=== PATIENT | female | born 1955 ===

== ENCOUNTER 2020-10-08 09:25 | Inpatient (IN) | payer OTHER ==
--- NOTE | 2020-10-08 11:50 | R.PREADM ---
PRE-ADMISSION SCREENING FORM SCREENING DATE AND TIME 10/08/2020 09:33 (FLANGER) ANTICIPATED REHAB ADMISSION DATE 10/10/2020 REFERRING FACILITY [facility] REFERRAL DATE AND TIME 10/08/2020 09:33 (FLANGER) ACUTE ADMIT DATE 10/08/2020 HOSPITALIZED IN LAST 60 DAYS? 09/19/20 Previous Rehabilitation(s): No. 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 Andres Lux M.D. MR# [id number] NAME ELEONORA PEDRO ADDRESS [address] PHONE ( ZIP [phone] DATE OF 1955 AGE 65 SSN# [id number] GENDER female MARITAL STATUS RACE unknown race ADMIT FROM 02 - [facility] PRE-HOSPITAL LIVING SETTING 01 - Home (private home/apt. board/care, assisted living, long-term, transitional living) HOME TYPE AND DETAILS Type of home: single family house # of levels in the residence: 1 # of steps within the residence: 0 # of steps to enter the residence: 0 PRE-HOSPITAL LIVING WITH Alone FAMILY SUPPORT No PRIMARY FAMILY CONTACT NAME BASSEM RUSH PRIMARY FAMILY CONTACT PHONE PRIMARY FAMILY CONTACT RELATIONSHIP Son PHONE PRIMARY FAMILY CONTACT ON ADM.? no IS PRIMARY FAMILY CONTACT AUTH. REP.? no 1ST EMERGENCY CONTACT BASSEM RUSH 1ST CONTACT PHONE 1ST CONTACT RELATIONSHIP Son PHONE 1ST CONTACT ON ADM. no IS 1ST CONTACT AUTH. REP.? no PHONE 2ND CONTACT ON ADM.? no PATIENT EMPLOYMENT STATUS Retired (for age) PATIENT EMPLOYER No Employer PAYOR INFORMATION: 1ST PAYOR NAME MEDICARE 1ST PAYOR PHONE 1ST PAYOR INJURY/ILLNESS DUE TO ACCIDENT? No ANOTHER DEMOCRAT RESPONSIBLE? No PRIMARY REHAB/ACUTE DIAGNOSIS: CHF ONSET DATE 10/04/2020 REHAB IMPAIRMENT CATEGORY (RAO): 14 Cardiac does NOT meet 60% rule PRIMARY DIAGNOSIS-RELATED SURGERIES: CAD STATUS POST CABGX3 09/19/20 SUMMARY OF ACUTE HOSPITALIZATION: Pt. is a 65 yo Right-handed female of unknown race. On 10/04/2020 she was admitted to [facility] with diagnosis CHF. Her impairment category is Cardiac 09 - Cardiac Disorders (). Pre-morbidly, Pt. was independent/mod-I in Communication, Safety Awareness, Transfers Control, Self-C are, and Endurance; and she had good Balance and Social Cognition. Currently, she has deficits of Balance, Social Cognition, Sphincter Control, Communication, and Self- Care. Pt. is now referred to [facility] for acute in-patient rehabilitation in order to maximize patient's functional independence in activities of daily living, strength, ROM, and mobi lity. Patient has realistic goal of being discharged at assistance level 7-[facility] to reside at Home with Pt s elf. PAST MEDICAL HISTORY DIABETES MELLITUS PAST SURGICAL HISTORY: BILATERAL TUBAL LIGATION BYPASS,AORTO CORONARY ALEC 09/19/20 ENDOSCOPIC VEIN HARVEST MEDICATION ALLERGIES: No Known Drug Allergies (NKDA) ENVIRONMENTAL ALLERGIES: - Substance Allergies None Known - Other Allergies None Known CODE STATUS: Full code WEIGHT/HEIGHT/BMI: WEIGHT 140 lbs HEIGHT 5' 9" BMI 20.7 DIET: - Diet Type Regular - Diet - Solid Texture Regular - Diet - Liquid Texture Regular - Tube Feed N/A REVIEW OF SYSTEMS: - Gen Alert and awake Lying in bed No apparent distress Oriented to: person, time, and place - Vital Signs Temperature: 96.4 F SBP/DBP: 124/64 Pulse: 78 Resp: 17 Vital signs stable, afebrile - CVS RRR VITAL SIGNS Temperature: 96.4 124/65 Pulse: 78 Resp: 17 Vital signs stable, afebrile MEDICATIONS/TREATMENT: Other- See attached MAR (Medication Administration Record). CURRENT SPHINCTER CONTROL: Pre-hospital bladder status: unspecified # of bladder accidents in the last 7 days prior to screenin Pre-hospital bowel status: unspecified # of bowel accidents in the last 7 days prior to screenin Last Bowel Movement Date: 10/08/2020 CURRENT LOCOMOTION STATUS: distance walked 200 feet with rolling walker DETAILED CURRENT FUNCTIONAL STATUS: - Bladder accident frequency: Ind - No accidents in the past 7 days - Bowel accident frequency: Ind - No accidents in the past 7 days - Walking score based on distance walked: 0(N/A) score based on distance walked: 3(>=150ft) - Wheelchair score based on distance traveled: 0(N/A) QI SCORES: - Self-Care A. Eating 04-Supervision or touching assistance B. Oral hygiene 03-Partial/moderate assistance C. Toileting hygiene E. Shower/bathe self 02-Substantial/maximal assistance F. Upper body dressing 03-Partial/moderate assistance G. Lower body dressing 02-Substantial/maximal assistance H. Putting on/taking off footwear 88-Not attempted due to medical condition or safety concerns - Mobility A. Roll left and right 03-Partial/moderate assistance B. Sit to lying 03-Partial/moderate assistance C. Lying to sitting on side of bed 03-Partial/moderate assistance D. Sit to stand 03-Partial/moderate assistance E. Chair/gtu-ls-wldwq transfer 03-Partial/moderate assistance F. Toilet transfer G. Car transfer 88-Not attempted due to medical condition or safety concerns I. Walk 10 feet 03-Partial/moderate assistance J. Walk 50 feet with two turns 03-Partial/moderate assistance K. Walk 150 feet 03-Partial/moderate assistance L. Walking 10 feet on uneven surfaces 88-Not attempted due to medical condition or safety concerns M. 1 step (curb) 88-Not attempted due to medical condition or safety concerns N. 4 steps 88-Not attempted due to medical condition or safety concerns O. 12 steps 88-Not attempted due to medical condition or safety concerns P. Picking up object 88-Not attempted due to medical condition or safety concerns R. Wheel 50 feet with two turns 88-Not attempted due to medical condition or safety concerns S. Wheel 150 feet 88-Not attempted due to medical condition or safety concerns - Bladder and Bowel Bladder continence Bowel continence - Endurance Fair - Balance Fair - Safety Awareness Fair CURRENT FUNC. DEFICITS: Self-Care, Mobility, Endurance, Balance, and Safety Awareness HISTORY OF FALLS. HAS THE PATIENT HAD TWO OR MORE FALLS IN THE PAST YEAR OR ANY FALL WITH INJURY IN T HE PAST YEAR?: No PRIOR SURGERY. DID THE PATIENT HAVE MAJOR SURGERY DURING THE 100 DAYS PRIOR TO ADMISSION?: Yes THERAPY NOTES FROM ACUTE CARE: Attached. SPECIAL NEEDS: - Safety Concerns Skin breakdown precautions needed due to skin breakdown risk PATIENT NEEDS ACTIVE AND ONGOING THERAPEUTIC INTERVENTION OF MULTIPLE THERAPY DISCIPLINES, INCLUDING: - Dietary and Nutrition Adequate Nutrition. Nutritional Education. Nutritional Supplements. PATIENT NEEDS CLOSE MEDICAL SUPERVISION BY A REHABILITATION PHYSICIAN FOR: Coordination of Treatment Team PATIENT REQUIRES 24X7 REHAB NURSING FOR MEDICAL AND FUNCTIONAL MGT. OF THE FOLLOWING DEFICITS: Disease Management Medication Management Patient/Family Education Providing Safe Environment PATIENT REQUIRES INTENSIVE, COORDINATED INTERDISCIPLINARY APPROACH TO REHAB: Arranging Home Equipment/Services Discharge Planning Family Intervention/Training Board Certified Behavioral Analyst/Case Management PATIENT REHAB POTENTIAL: Bharti PEDRO is able and expected to receive 3 hours of individualized therapy daily on at least 5 of ev marge 7 days Bharti Wallace prognosis for significant practical improvement within a reasonable period of time appear s Good Expected level of measurable improvement will be of a practical value to Bharti PEDRO's functional capac ity or adaptations to impairments Has a viable Discharge Plan Medically appropriate; condition is sufficiently stable to participate in intensive rehab program DISCHARGE PLAN: - Estimated Length of Stay (days) 10. - Consensus on plan Discharge plan has been discussed with primary caregiver. Patient/Family is in agreement with the janice n. Primary caregiver is in agreement with the plan. - Patient/Family Goals Return home independently. - Planned Living Setting Upon Discharge Home, to live alone. Transitional Living. Primary caregiver: Pt self. RECOMMENDED CARE LEVEL: IRF RECOMMENDATION DETAILS: Recommended Admission to Comprehensive Rehabilitation Program to Increase Functional Anchor SCREENER'S COMPLETENESS CONFIRMATION: - Screening Confirmation The patient data collection on this preadmission screening form is finished PHYSICIANS REVIEW AND ADMISSION DETERMINATION Admit - Based on my review of the Pre-Admission Screening results, in my medical judgment and experie nce, I concur with the findings and recommend admission to [facility], as this patient requires an IRF level of care. SIGNATURE PANEL: Garment Tag Stringer - [electronically] signed by Humberto Quesada on 10/08/2020 at 10:05 (FLANGER) Garment Tag Stringer - [electronically] signed by Simnoe Webb PT on 10/08/2020 at 11:06 (FLANGER) Physician Reviewer - [electronically] signed by Dr. Andres Lux M.D. on 10/08/2020 at 11:44 (FLANGER )
[2020-10-08] MEDS ORDERED: D50W 25 GM/50 ML SYRINGE IV PRN (18:15)
[2020-10-08] MEDS ORDERED: GLUCAGON 1 MG/VIAL IM PRN (18:15)
[2020-10-08] MEDS ORDERED: MELATONIN 3 MG TABLET PO PRN (18:17)
[2020-10-08] MEDS ORDERED: BISACODYL E.C. 5 MG TAB PO PRN (18:26)
[2020-10-08] MEDS ORDERED: MELATONIN 5 MG TABLET PO PRN (18:29)
[2020-10-08] MEDS: TORSEMIDE 20 MG TAB PO SCH (20:00)
[2020-10-08] MEDS: SACUBITRIL/VALSARTAN 24/26 MG TAB PO SCH (20:48)
[2020-10-08] MEDS: ATORVASTATIN 40 MG TAB PO SCH (20:50)
[2020-10-08] MEDS: FAMOTIDINE 20 MG TAB PO SCH (20:50)
[2020-10-08] MEDS: METOPROLOL XL 25 MG TAB PO SCH (20:51)
[2020-10-08] MEDS: TRAMADOL HCL 50 MG TAB PO PRN (20:57)
[2020-10-08] MEDS: INSULIN -REGULAR HUMAN 50 UNIT/0.5 ML ML SQ SCH (21:00)
[2020-10-08] MEDS: ENOXAPARIN 40 MG/0.4 ML SQ SCH (21:01)
[2020-10-09 06:18] LABS: Urine Appearance CLEAR; Urine Bilirubin NEGATIVE (NEG); Urine Blood NEGATIVE (NEG); Urine Color YELLOW; Urine Glucose NEGATIVE (NEG); Urine Protein 1+ (NEG); Urine Specific Gravity 1.015 (1.005-1.030)
[2020-10-09 06:23] LABS: Absolute Lymphocytes (CBC) 1.7 K/uL (0.7-4.9); Basophils % 0.2 % (0-1.3); Hematocrit 33.3 % (36.0-45.0); Lymphocytes % 31.7 % (15.3-44.8); MPV 7.7 fL (7.6-11.3); RBC Red Blood Cell Count 4.04 M/uL (3.86-4.86)
[2020-10-09 06:24] LABS: Urine Bacteria >50 /HPF (<20); Urine RBC <5 /HPF (NONE SEEN); Urine Urothelial Cells <5 /HPF (NONE SEEN)
[2020-10-09 06:44] LABS: Albumin 2.7 g/dL (3.4-5.0); Potassium 4.6 mmol/L (3.5-5.1); Prealbumin 17.5 mg/dL (20-40)
[2020-10-09] MEDS: INSULIN -REGULAR HUMAN 50 UNIT/0.5 ML ML SQ SCH ×4 (07:30→20:04)
[2020-10-09] MEDS: ENOXAPARIN 40 MG/0.4 ML SQ SCH ×2 (08:00→20:04)
[2020-10-09] MEDS: METOPROLOL XL 25 MG TAB PO SCH ×2 (08:00→16:52)
[2020-10-09] MEDS: ASPIRIN EC 81 MG TAB PO SCH (08:58)
[2020-10-09] MEDS: FAMOTIDINE 20 MG TAB PO SCH ×2 (08:58→19:57)
[2020-10-09] MEDS: POTASSIUM CL SA 10 MEQ TAB PO SCH (08:58)
[2020-10-09] MEDS: TRAMADOL HCL 50 MG TAB PO PRN ×2 (08:59→20:10)
[2020-10-09] MEDS: TORSEMIDE 20 MG TAB PO SCH ×2 (10:23→19:58)
[2020-10-09] MEDS: SACUBITRIL/VALSARTAN 24/26 MG TAB PO SCH ×2 (12:11→20:02)
--- NOTE | 2020-10-09 16:27 | FAST ---
QUALITY INDICATORS FORM SHIFT START DATE/TIME: 10/09/2020 07:00 (NAVY MATERIAL INSPECTOR) SHIFT END DATE/TIME: 10/09/2020 19:00 (NAVY MATERIAL INSPECTOR) NAME ELEONORA PEDRO DATE OF : 1955 DATE OF ADMISSION: 10/08/2020 16:36 (NAVY MATERIAL INSPECTOR) PHONE: ( AGE: 65 SSN# [id number] GENDER: Female ENCOUNTER PHYSICIAN: Dr. Andres Lux M.D. ADMISSION DIAGNOSIS: - Cardiac 09 - Cardiac Disorders () CHF. EATING: EATING - STEP 1: Does the patient complete the activity by him/herself with no assistance (physical, verbal/nonverbal cueing, setup/clean-up)? No. EATING - STEP 2: Does the patient need only setup/clean-up assistance from one helper? Yes. 1. [id number] ADMISSION PERFORMANCE: Setup or clean-up assistance CODE: 05 ORAL HYGIENE: ORAL HYGIENE - STEP 1: Does the patient complete the activity by him/herself with no assistance (physical, verbal/nonverbal cueing, setup/clean-up)? No. ORAL HYGIENE - STEP 2: Does the patient need only setup/clean-up assistance from one helper? Yes. 1. [id number] ADMISSION PERFORMANCE: Setup or clean-up assistance CODE: 05 TOILETING HYGIENE: TOILETING HYGIENE - STEP 1: Does the patient complete the activity by him/herself with no assistance (physical, verbal/nonverbal cueing, setup/clean-up)? No. TOILETING HYGIENE - STEP 2: Does the patient need only setup/clean-up assistance from one helper? Yes. 1. [id number] ADMISSION PERFORMANCE: Setup or clean-up assistance CODE: 05 BATHING: Not assessed/no information CODE: - DRESSING - UPPER BODY: Not assessed/no information CODE: - [id number] - COMMENTS: Pt wears hospital gowns only DRESSING - LOWER BODY: Not assessed/no information CODE: - [id number] - COMMENTS: Pt wears only hospital gowns PUTTING ON/TAKING OFF FOOTWEAR: FOOTWEAR - STEP 1: Does the patient complete the activity by him/herself with no assistance (physical, verbal/nonverbal cueing, setup/clean-up)? No. FOOTWEAR - STEP 2: Does the patient need only setup/clean-up assistance from one helper? No. FOOTWEAR - STEP 3: Does the patient need only verbal/nonverbal cueing or touching/steadying/contact guard assistance fro m one helper? No. FOOTWEAR - STEP 4: Does the patient need physical assistance - for example lifting or trunk support from one helper - wi th the helper providing less than half of the effort? No. FOOTWEAR - STEP 5: Does the patient need physical assistance - for example lifting or trunk support from one helper - wi th the helper providing more than half of the effort? No. FOOTWEAR - STEP 6: Does the helper provide all of the effort? OR Is the assistance of two or more helpers required to co mplete the activity? Yes. 1. [id number] ADMISSION PERFORMANCE: Dependent CODE: 01 ROLL LEFT AND RIGHT: Not assessed/no information CODE: - SIT TO LYING: SIT TO LYING - STEP 1: Does the patient complete the activity by him/herself with no assistance (physical, verbal/nonverbal cueing, setup/clean-up)? No. SIT TO LYING - STEP 2: Does the patient need only setup/clean-up assistance from one helper? Yes. 1. [id number] ADMISSION PERFORMANCE: Setup or clean-up assistance CODE: 05 LYING TO SITTING: LYING TO SITTING ON SIDE OF BED - STEP 1: Does the patient complete the activity by him/herself with no assistance (physical, verbal/nonverbal cueing, setup/clean-up)? No. LYING TO SITTING ON SIDE OF BED - STEP 2: Does the patient need only setup/clean-up assistance from one helper? Yes. 1. [id number] ADMISSION PERFORMANCE: Setup or clean-up assistance CODE: 05 SIT TO STAND: SIT TO STAND - STEP 1: Does the patient complete the activity by him/herself with no assistance (physical, verbal/nonverbal cueing, setup/clean-up)? No. SIT TO STAND - STEP 2: Does the patient need only setup/clean-up assistance from one helper? Yes. 1. [id number] ADMISSION PERFORMANCE: Setup or clean-up assistance CODE: 05 TRANSFERS: BED, CHAIR: CHAIR/[id number] TRANSFER - STEP 1: Does the patient complete the activity by him/herself with no assistance (physical, verbal/nonverbal cueing, setup/clean-up)? No. CHAIR/[id number] TRANSFER - STEP 2: Does the patient need only setup/clean-up assistance from one helper? Yes. 1. [id number] ADMISSION PERFORMANCE: Setup or clean-up assistance CODE: 05 TRANSFER TOILET: TOILET TRANSFER - STEP 1: Does the patient complete the activity by him/herself with no assistance (physical, verbal/nonverbal cueing, setup/clean-up)? No. TOILET TRANSFER - STEP 2: Does the patient need only setup/clean-up assistance from one helper? Yes. 1. [id number] ADMISSION PERFORMANCE: Setup or clean-up assistance CODE: 05 TRANSFERS: CAR: Not assessed/no information CODE: - WALK 10 FEET: Not assessed/no information CODE: - 1 STEP (CURB): Not assessed/no information CODE: - PICKING UP OBJECT: Not assessed/no information CODE: - DOES THE PATIENT USE A WHEELCHAIR/SCOOTER? Q1. DOES THE PATIENT USE A WHEELCHAIR/SCOOTER?: Yes CODE: 1 WHEEL 50 FEET WITH TWO TURNS: Not assessed/no information CODE: - INDICATE THE TYPE OF WHEELCHAIR/SCOOTER USED: RR1. INDICATE THE TYPE OF WHEELCHAIR/SCOOTER USED.: Manual CODE: 1 WHEEL 150 FEET: Not assessed/no information CODE: - INDICATE THE TYPE OF WHEELCHAIR/SCOOTER USED: CODE: EXPR BLADDER AND BOWEL: H350. BLADDER CONTINENCE (3-DAY ASSESSMENT PERIOD): Always continent (no documented incontinence) CODE: 0 H400. BOWEL CONTINENCE (3-DAY ASSESSMENT PERIOD): Always continent CODE: 0 SIGNATURE PANEL: The following modified sections: 1. [id number] Admission Performance, 1. [id number] Admission Performance, 1. [id number] Admission Performance, [id number] - Comments:, [id number] - Comments:, 1. [id number] Admission Perf ormance, 1. [id number] Admission Performance, 1. [id number] Admission Performance, 1. [id number] Admission Per formance, 1. [id number] Admission Performance, 1. [id number] Admission Performance, 1. [id number] Admission Pe rformance, Q1. Does the patient use a wheelchair/scooter?, RR1. Indicate the type of wheelchair/scoot er used., Code, H350. Bladder Continence (3-day assessment period), H400. Bowel Continence (3-day ass essment period) were [electronically] signed by Zuleika JacquesNStu on TueOct 09 2020 16:26:33 GMT- 0600 (Central Standard Time)
--- NOTE | 2020-10-09 17:27 | R.HP ---
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 board/care, assisted living, skilled nursing, transitional living) PRE-HOSPITAL LIVING WITH Alone ENCOUNTER PHYSICIAN: Dr. Andres Lux M.D. 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 is a 65 yo Right-handed female of unknown race. On 10/04/2020 she was admitted to [facility] with diagnosis CHF. Her impairment category is Cardiac 09 - Cardiac Disorders (09). Pre-morbidly, Pt. was independent/mod-I in Communication, Safety Awareness, Transfers Control, Self-C are, and Endurance; and she had good Balance and Social Cognition. Currently, she has deficits of Balance, Social Cognition, Sphincter Control, Communication, and Self- Care. Pt. is now referred to [facility] for acute in-patient rehabilitation in order to maximize patient's functional independence in activities of daily living, strength, ROM, and mobi lity. Patient has realistic goal of being discharged at assistance level 7-Ind to reside at Home with Pt s elf. 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 SOCIAL HISTORY: - Home Living Alone REVIEW OF SYSTEMS: - Gen No Chills Fatigue No Fever - Eyes No Double Vision No itchiness - ENMT No Difficulty Swallowing - CVS No Chest Discomfort No Chest Pain No Fatigue No Weight Gain - Resp No Cough No Shortness of Breath - GI Continent No Abdominal Pain Constipation No Diarrhea - Continent No Kidney Pain No Painful Urination No Urinary Urgency - MSK No Joint Pain Muscle Cramps Stiffness - Skin No Itching No Rash No Suspicious Lesions - Neuro No Coordination Difficulty No Difficulty with Concentration No Memory Loss No Seizures Weakness - Psych No Anxiety No Depression No HIV Exposure No Persistent Infections No Seasonal Allergies - Endo No Cold/Heat Intolerance No Excessive Hunger No Excessive Thirst No Excessive Urination PHYSICAL EXAM - Gen Alert and awake Lying in bed No apparent distress Oriented to: person, time, and place - Skin No breakdown Normacephalic - Eyes No abnormalities - ENMT No abnormalities - Neck No abnormalities - CVS RRR - Chest Mildly decreased breath sounds bilaterally. - Resp No wheezing - Abd Soft - GI Soft Deferred - No abnormalities - Ext Mild bilateral lower extremity edema. - MSK 4/5 weakness in both lower extremities. - Neuro No focal deficits - Psych No abnormalities VITAL SIGNS Temperature: 97.8 SBP/DBP: 126/64 Pulse: 74 Resp: 16 NURSING: - Shower allowing shower ACTIVITIES OOB only with supervision QI SCORES: - Self-Care A. Eating 04-Supervision or touching assistance B. Oral hygiene 03-Partial/moderate assistance C. Toileting hygiene E. Shower/bathe self 02-Substantial/maximal assistance F. Upper body dressing 03-Partial/moderate assistance G. Lower body dressing 02-Substantial/maximal assistance H. Putting on/taking off footwear 88-Not attempted due to medical condition or safety concerns - Mobility A. Roll left and right 03-Partial/moderate assistance B. Sit to lying 03-Partial/moderate assistance C. Lying to sitting on side of bed 03-Partial/moderate assistance D. Sit to stand 03-Partial/moderate assistance E. Chair/saa-oa-sbauy transfer 03-Partial/moderate assistance F. Toilet transfer G. Car transfer 88-Not attempted due to medical condition or safety concerns I. Walk 10 feet 03-Partial/moderate assistance J. Walk 50 feet with two turns 03-Partial/moderate assistance K. Walk 150 feet 03-Partial/moderate assistance L. Walking 10 feet on uneven surfaces 88-Not attempted due to medical condition or safety concerns M. 1 step (curb) 88-Not attempted due to medical condition or safety concerns N. 4 steps 88-Not attempted due to medical condition or safety concerns O. 12 steps 88-Not attempted due to medical condition or safety concerns P. Picking up object 88-Not attempted due to medical condition or safety concerns R. Wheel 50 feet with two turns 88-Not attempted due to medical condition or safety concerns S. Wheel 150 feet 88-Not attempted due to medical condition or safety concerns - Bladder and Bowel Bladder continence Bowel continence - Endurance Fair - Balance Fair - Safety Awareness Fair CURRENT FUNC. DEFICITS: Self-Care, Mobility, Endurance, Balance, and Safety Awareness MEDICATIONS: - Other See attached MAR (Medication Administration Record) ASSESSMENT: Pt. is a 65 yo Right-handed female of unknown race.On 10/04/2020 she was admitted to [facility] with diagnosis CHF.Her impairment category is Cardiac 09 - Cardiac Disorders (09).Pre-morbidly, Pt. was independent/mod-I in Communication, Safety Awareness, Transfers Control, Self-Care, and Enduranc e; and she had good Balance and Social Cognition.Currently, she has deficits of Balance, Social Cogni tion, Sphincter Control, Communication, and Self-Care.Pt. is now referred to [facility] for acute in-patient rehabilitation in order to maximize patient's functional independence in activities of daily living, strength, ROM, and mobility.- Rehab Goal Patient has realistic goal of being discharged at assistance level 7-Ind to reside at Home with Pt s elf. - Physical Therapy Gait dysfunction - to improve, our physical therapists will perform initial evaluation of pt's status upon admission and devise an individualized program for Gait Training, and Wheel Chair mobility Need for home safety evaluation - to improve, our physical therapists will perform initial evaluation of pt's status upon admission and devise an individualized program for Home Evaluation Need in caregiver upon discharge - to improve, our physical therapists will perform initial evaluatio n of pt's status upon admission and devise an individualized program for Caregiver Training New precaution - to improve, our physical therapists will perform initial evaluation of pt's status u anthony admission and devise an individualized program for Patient precaution education Edema - to improve, our physical therapists will perform initial evaluation of pt's status upon admi ssion and devise an individualized program for Elevation Training, and Lymphedema Therapy Poor balance - to improve, our physical therapists will perform initial evaluation of pt's status upo n admission and devise an individualized program for Balance Training Weakness - to improve, our physical therapists will perform initial evaluation of pt's status upon ad mission and devise an individualized program for Aquatic Therapy, Neuromuscular Reeducation, and Stre ngthening Achieving independence - to improve, our physical therapists will perform initial evaluation of pt's status upon admission and devise an individualized program for Community Reintegration Activities - Occupational Therapy ADL deficits - to improve, our occupation therapists will perform initial evaluation of pt's status u anthony admission and devise an individualized program for Bathing, Bed mobility, Community Reintegration , Cooking, Dressing, Eating, Fine Motor Skills, Grooming, Homemaking, Kitchen Mobility, Laundry, Renetta ent Education, Safety Awareness, Splinting - Positioning, Transfers(Toilet, Tub, Shower), and Wheel C hair Management Cognitive deficits - to improve, our occupation therapists will perform initial evaluation of pt's st atus upon admission and devise an individualized program for Cognition - orientation Need for occasional caregiver - to improve, our occupation therapists will perform initial evaluation of pt's s tatus upon admission and devise an individualized program for Caregiver Training Weakness - to improve, our occupation therapists will perform initial evaluation of pt's status upon admission and devise an individualized program for Aquatic Therapy, Balance, Endurance, UE ROM, and U E strengthening MEDICAL PLAN: - Diet Type Start Regular - Diet - Liquid Texture Start Regular - Tube Feed Start N/A - Other See attached MAR (Medication Administration Record) - Diet - Solid Texture Regular - Shower shower DISCHARGE PLAN: - Estimated Length of Stay (days) 10. - Consensus on plan Discharge plan has been discussed with primary caregiver. Patient/Family is in agreement with the janice n. Primary caregiver is in agreement with the plan. - Patient/Family Goals Return home independently. - Planned Living Setting Upon Discharge Home, to live alone. Transitional Living. Primary caregiver: Pt self. 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
--- NOTE | 2020-10-09 17:28 | PAPE ---
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 Andres Lux M.D. ADMISSION DIAGNOSIS: CHF ONSET DATE 10/04/2020 POST-ADMISSION FUNCTIONAL/MEDICAL STATUS: - Bladder Same accident frequency: Ind - No accidents in the past 7 days - Bowel Same accident frequency: Ind - No accidents in the past 7 days - Walking Same score based on distance walked: 0(N/A) Same score based on distance walked: 3(>=150ft) - Wheelchair Same score based on distance traveled: 0(N/A) STATUS CHANGE EVALUATION: No change in Functional or Medical Status is identified compared with Pre-Admission screening. PATIENT NEEDS CLOSE MEDICAL SUPERVISION BY A REHABILITATION PHYSICIAN FOR: Coordination of Treatment Team PATIENT REQUIRES 24X7 REHAB NURSING FOR MEDICAL AND FUNCTIONAL MGT. OF THE FOLLOWING DEFICITS: Disease Management Medication Management Patient/Family Education Providing Safe Environment PATIENT REQUIRES INTENSIVE, COORDINATED INTERDISCIPLINARY APPROACH TO REHAB: Arranging Home Equipment/Services Discharge Planning Family Intervention/Training Psychology Fellow/Case Management LIST OF IDENTIFIED AND POTENTIAL PROBLEMS: Alteration in leisure activities Bladder, Incontinence Bowel, Incontinence Infection, Actual or Potential Mobility Impaired Pain, Alteration in Comfort Self Care Deficit Skin Integrity, Actual or Potential Urinary Tract Infection (UTI), Actual or Potential PATIENT COULD BE AT RISK FOR COMPLICATIONS FROM ADVERSE MEDICAL CONDITIONS DUE TO HIS/HER COMORBIDITI ES AND THE RIGORS OF THE INTENSIVE REHABILLITATION PROGRAM. METHODS OR INTERVENTIONS TO AVOID COMPLIC ATIONS INCLUDE: - Infection Clinical staff to assess and manage the signs and symptoms of infection including fever, redness, war mth, etc. - Urinary Tract Infection - Falls Patient will be evaluated for Fall Precautions and will be placed on Fall Precautions as indicated pe r protocol. - Skin Breakdown Nursing will assess skin daily using assessment tool and will place on Skin Breakdown Precautions as indicated per protocol. - Pain Clinical staff may employ non-medication methods such as massage, distraction, decrease stimulus, etc . as needed. Clinical staff will assess patient's pain level every shift per protocol to assess and e nsure pain management effectiveness. Medications will be given and the pain level re-assessed. PRELIMINARY PLAN OF CARE: - Physical Therapy Patient needs Physical Therapy for a daily minimum of 1.5 hours at least 5 out of 7 days, to improve: Mobility, Strengthening, Transfers, Stretching, ROM, Endurance, Ability to manage stairs, Gait, and Balance. - Speech Therapy Patient needs Speech Therapy for a daily minimum of 0.5 hours at least 5 out of 7 days, to improve: S wallowing, Cognition, Language Skills, and Compensatory Strategies. - Rehabilitation Nursing Patient requires 24x7 Rehabilitation Nursing for: Pain Issues, Identifying and preventing risk factor s, Monitoring and reporting current medical conditions, Assisting with ambulation and transfer, Shilpa ting with all ADL-s, Teaching patients about disease process and medications, Family teaching, Provid ing safe environment, Bowel and Bladder Issues, Skin Integrity, and Medication Management. Patient needs Psychology Fellow and/or Case Management for: Discharge Planning, Arranging Home Equipmen t or Services, and Family Interventions. - Dietary and Nutrition Services Patient needs Dietary and Nutrition Services for: Adequate Nutrition, Nutritional Supplements, and Nu tritional Education. - Occupational Therapy Patient needs Occupational Therapy for a daily minimum of 1.5 hours at least 5 out of 7 days, to impr ove Activities of Daily Living, including: Eating, Grooming, Bathing, Dressing, Toileting, Toilet Tra nsfers, Community Reintegration, Higher functional activities, Adaptive Equipment, Splinting, Househo ld Tasks, and Other activities as determined. QI SCORES: - Self-Care A. Eating 04-Supervision or touching assistance B. Oral hygiene 03-Partial/moderate assistance C. Toileting hygiene E. Shower/bathe self 02-Substantial/maximal assistance F. Upper body dressing 03-Partial/moderate assistance G. Lower body dressing 02-Substantial/maximal assistance H. Putting on/taking off footwear 88-Not attempted due to medical condition or safety concerns - Mobility A. Roll left and right 03-Partial/moderate assistance B. Sit to lying 03-Partial/moderate assistance C. Lying to sitting on side of bed 03-Partial/moderate assistance D. Sit to stand 03-Partial/moderate assistance E. Chair/xen-hd-poudm transfer 03-Partial/moderate assistance F. Toilet transfer G. Car transfer 88-Not attempted due to medical condition or safety concerns I. Walk 10 feet 03-Partial/moderate assistance J. Walk 50 feet with two turns 03-Partial/moderate assistance K. Walk 150 feet 03-Partial/moderate assistance L. Walking 10 feet on uneven surfaces 88-Not attempted due to medical condition or safety concerns M. 1 step (curb) 88-Not attempted due to medical condition or safety concerns N. 4 steps 88-Not attempted due to medical condition or safety concerns O. 12 steps 88-Not attempted due to medical condition or safety concerns P. Picking up object 88-Not attempted due to medical condition or safety concerns R. Wheel 50 feet with two turns 88-Not attempted due to medical condition or safety concerns S. Wheel 150 feet 88-Not attempted due to medical condition or safety concerns - Bladder and Bowel Bladder continence Bowel continence - Endurance Fair - Balance Fair - Safety Awareness Fair POTENTIAL FUNCTIONAL GOALS FOR PATIENT TO ACHIEVE BY DISCHARGE: - Safety Precaution Patient will remain free from falls or injury at time of discharge. - Bed Mobility Patient will perform bed mobility at 4-Keyanna level of assistance. - Transfers Patient will complete transfers from bed to chair at 4-Keyanna level of assistance. - Mobility Patient will ambulate 150 ft with 4-Keyanna level of assistance with RW. PATIENT REHAB POTENTIAL Bharti PEDRO is able and expected to receive 3 hours of individualized therapy daily on at least 5 of ev marge 7 days Bharti PEDRO's prognosis for significant practical improvement within a reasonable period of time appear s Good Expected level of measurable improvement will be of a practical value to Bharti PEDRO's functional capac ity or adaptations to impairments Has a viable Discharge Plan Medically appropriate; condition is sufficiently stable to participate in intensive rehab program DISCHARGE PLAN: - Estimated Length of Stay (days) 10. - Consensus on plan Discharge plan has been discussed with primary caregiver. Patient/Family is in agreement with the janice n. Primary caregiver is in agreement with the plan. - Patient/Family Goals Return home independently. - Planned Living Setting Upon Discharge Home, to live alone. Transitional Living. Primary caregiver: Pt self. CONCLUSION ON REHABILITATION NECESSITY: I have evaluated patient's pre-admission functional status and, comparing it to the patient's post-ad mission functional status now, I conclude that the pre-admission assessment was accurate. Patient's c ondition on admission supports the medical necessity of admission to IRF. It is safe to proceed with patient's therapy program. SIGNATURE PANEL: ([facility])
[2020-10-09] MEDS: ATORVASTATIN 40 MG TAB PO SCH (20:03)
[2020-10-10] MEDS: METOPROLOL XL 25 MG TAB PO SCH ×2 (05:09→16:49)
[2020-10-10] MEDS: INSULIN -REGULAR HUMAN 50 UNIT/0.5 ML ML SQ SCH ×4 (07:30→20:47)
[2020-10-10] MEDS: SACUBITRIL/VALSARTAN 24/26 MG TAB PO SCH ×2 (07:55→20:25)
[2020-10-10] MEDS: TORSEMIDE 20 MG TAB PO SCH ×2 (07:56→20:25)
[2020-10-10] MEDS: ASPIRIN EC 81 MG TAB PO SCH (07:56)
[2020-10-10] MEDS: FAMOTIDINE 20 MG TAB PO SCH ×2 (07:56→20:26)
[2020-10-10] MEDS: POTASSIUM CL SA 10 MEQ TAB PO SCH (07:56)
[2020-10-10] MEDS: TRAMADOL HCL 50 MG TAB PO PRN (07:57)
--- NOTE | 2020-10-10 09:56 | P.RH.PN ---
Estimated Length of Stay: 11 Expected Discharge Date: 10/19/20 Discharge Disposition Plan: Home Family Support: Yes [facility] Goal: Mobility, Transfers, Self Care Vital Signs: Last Vital Signs Temp 98.4 F 10/10/20 07:55 Pulse 74 10/10/20 07:56 Resp 16 10/10/20 07:57 BP 122/56 L 10/10/20 07:56 Pulse Ox 92 10/10/20 07:57 Laboratory: Laboratory Last Values WBC 5.5 K/uL (4.3-10.9) 10/09/20 05:58 RBC 4.04 M/uL (3.86-4.86) 10/09/20 05:58 Hgb 10.7 g/dL (12.0-15.0) L 10/09/20 05:58 Hct 33.3 % (36.0-45.0) L 10/09/20 05:58 MCV 82.6 fL (80-100) 10/09/20 05:58 MCH 26.5 pg (27.0-35.0) L 10/09/20 05:58 MCHC 32.1 g/dL (32.0-36.0) 10/09/20 05:58 RDW 15.1 % (12.1-15.2) 10/09/20 05:58 Plt Count 368 K/uL (152-406) 10/09/20 05:58 MPV 7.7 fL (7.6-11.3) 10/09/20 05:58 Neutrophils % 50.6 % (41.7-73.7) 10/09/20 05:58 Lymphocytes % 31.7 % (15.3-44.8) 10/09/20 05:58 Monocytes % 11.8 % (3.3-12.3) 10/09/20 05:58 Eosinophils % 5.7 % (0-4.4) H 10/09/20 05:58 Basophils % 0.2 % (0-1.3) 10/09/20 05:58 Absolute Neutrophils 2.8 K/uL (1.8-8.0) 10/09/20 05:58 Absolute Lymphocytes 1.7 K/uL (0.7-4.9) 10/09/20 05:58 Absolute Monocytes 0.6 K/uL (0.1-1.3) 10/09/20 05:58 Absolute Eosinophils 0.3 K/uL (0-0.5) 10/09/20 05:58 Absolute Basophils 0.0 K/uL (0-0.5) 10/09/20 05:58 Sodium 138 mmol/L (136-145) 10/09/20 05:58 Potassium 4.6 mmol/L (3.5-5.1) 10/09/20 05:58 Chloride 102 mmol/L (98-107) 10/09/20 05:58 Carbon Dioxide 30 mmol/L (21-32) 10/09/20 05:58 BUN 17 mg/dL (7-18) 10/09/20 05:58 Creatinine 0.98 mg/dL (0.55-1.3) 10/09/20 05:58 Estimated GFR 57 mL/min (=/>90) L 10/09/20 05:58 Glucose 114 mg/dL (74-106) H 10/09/20 05:58 POC Glucose 99 mg/dL (65-120) 10/10/20 07:15 Calcium 9.0 mg/dL (8.5-10.1) 10/09/20 05:58 Magnesium 2.0 mg/dL (1.8-2.4) 10/09/20 05:58 Albumin 2.7 g/dL (3.4-5.0) L 10/09/20 05:58 Prealbumin 17.5 mg/dL (20-40) L 10/09/20 05:58 Urine Color Yellow 10/09/20 05:45 Urine Appearance Clear 10/09/20 05:45 Urine pH 6.0 (5.0-7.0) 10/09/20 05:45 Ur Specific Grawn 1.015 (1.005-1.030) 10/09/20 05:45 Glucose (UA)(Auto) Negative (NEG) 10/09/20 05:45 Urine Ketones Negative (NEG) 10/09/20 05:45 Urine Blood Negative (NEG) 10/09/20 05:45 Urine Nitrite Positive (NEG) H 10/09/20 05:45 Urine Bilirubin Negative (NEG) 10/09/20 05:45 Urine Urobilinogen 1.0 mg/dL (0.2-1.0) 10/09/20 05:45 Ur Leukocyte Esterase Negative (NEG) 10/09/20 05:45 Urine RBC <5 /HPF (NONE SEEN) 10/09/20 05:45 Urine WBC <5 /HPF (<5) 10/09/20 05:45 Ur Squamous Epith Cells <5 /HPF (NONE SEEN) 10/09/20 05:45 Ur Urothelial Cells <5 /HPF (NONE SEEN) 10/09/20 05:45 Urine Bacteria >50 /HPF (<20) H 10/09/20 05:45 Urine Culture Reflexed Not needed 10/09/20 05:45 Urine Total Protein 1+ (NEG) H 10/09/20 05:45 SARS-CoV-2 RNA (RT-PCR) Negative (NEGATIVE) 10/08/20 17:20 Weight: 130 lb Wound Present: No Closed Surgical Incision Present: Yes Negative Pressure Wound Therapy Present: No Physician Update: Labs reviewed and are stable. She is doing very well with p hysical and occupational therapy walking 500' and doing 15 steps with supervision. Functional Improvement: pt presents with mild strength deficits in bilateral LEs when assessed in isolation. pt experiences functional strength deficits during sit <-> stand transfers due to inability to use UE's during transfer. pt exhibits reduced balance and stability during ambulation. pt demonstrates impaired trunk strength. Skilled PT services are necessary to address the above mentioned impairments and functional limitations. Summary: Patient's care plan and senior care goals have been reviewed and revised as necessary. Please see the Rehabilitation Signature page for all necessary signatures.
[2020-10-10] MEDS: ATORVASTATIN 40 MG TAB PO SCH (20:26)
[2020-10-10] MEDS: ENOXAPARIN 40 MG/0.4 ML SQ SCH (20:26)
[2020-10-10] MEDS: CRANBERRY FRUIT EXTRACT 200 MG CAP PO SCH (20:26)
[2020-10-11] MEDS: METOPROLOL XL 25 MG TAB PO SCH ×2 (05:17→17:05)
[2020-10-11 05:31] VITALS: BMI 19.9
[2020-10-11] MEDS: INSULIN -REGULAR HUMAN 50 UNIT/0.5 ML ML SQ SCH ×4 (07:30→20:15)
[2020-10-11] MEDS: CRANBERRY FRUIT EXTRACT 200 MG CAP PO SCH ×2 (08:47→20:14)
[2020-10-11] MEDS: POTASSIUM CL SA 10 MEQ TAB PO SCH (08:48)
[2020-10-11] MEDS: ASPIRIN EC 81 MG TAB PO SCH (08:48)
[2020-10-11] MEDS: TORSEMIDE 20 MG TAB PO SCH ×2 (08:48→20:00)
[2020-10-11] MEDS: FAMOTIDINE 20 MG TAB PO SCH ×2 (08:48→20:14)
[2020-10-11] MEDS: ACETAMINOPHEN 500 MG TAB PO PRN (08:49)
[2020-10-11] MEDS: SACUBITRIL/VALSARTAN 24/26 MG TAB PO SCH ×2 (11:33→20:13)
--- NOTE | 2020-10-11 19:34 | R.PN ---
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 Pt denied any depression. Glucose 150 to 168. UA E-coli sensitive to her current treatment macrobid. VITAL SIGNS Temperature: 97.9 F SBP/DBP: 126/59 Pulse: 71 Resp: 16 MEDICATION ALLERGIES: No Known Drug Allergies (NKDA) ENVIRONMENTAL ALLERGIES: - Substance Allergies None Known - Other Allergies None Known NURSING: - Shower allowing shower ACTIVITIES OOB only with supervision THERAPIES: - Dietary and Nutrition Adequate Nutrition. Nutritional Education. Nutritional Supplements. PHYSICAL EXAM - Gen Alert and awake Lying in bed No apparent distress Oriented to: person, time, and place - Skin No breakdown Normacephalic - Eyes No abnormalities - ENMT No abnormalities - Neck No abnormalities - CVS RRR - Chest Mildly decreased breath sounds bilaterally. - Resp No wheezing - Abd Soft - GI Soft Deferred - No abnormalities - Ext Mild bilateral lower extremity edema. - MSK 4/5 weakness in both lower extremities. - Neuro No focal deficits - Psych No abnormalities ASSESSMENT: Pt. is a 65 yo Right-handed female of unknown race.On 10/04/2020 she was admitted to [facility] with diagnosis CHF.Her impairment category is Cardiac 09 - Cardiac Disorders (09).Pre-morbidly, Pt. was independent/mod-I in Communication, Safety Awareness, Transfers Control, Self-Care, and Enduranc e; and she had good Balance and Social Cognition.Currently, she has deficits of Balance, Social Cogni tion, Sphincter Control, Communication, and Self-Care.Pt. is now referred to [facility] for acute in-patient rehabilitation in order to maximize patient's functional independence in activities of daily living, strength, ROM, and mobility.- Rehab Goal Patient has realistic goal of being discharged at assistance level 7-Ind to reside at Home with Pt s elf. MDM/PLAN: - Physical Therapy Gait dysfunction - to improve, our physical therapists will perform initial evaluation of pt's statu s upon admission and devise an individualized program for Gait Training, and Wheel Chair mobility Need for home safety evaluation - to improve, our physical therapists will perform initial evaluatio n of pt's status upon admission and devise an individualized program for Home Evaluation Need in caregiver upon discharge - to improve, our physical therapists will perform initial evaluati on of pt's status upon admission and devise an individualized program for Caregiver Training New precaution - to improve, our physical therapists will perform initial evaluation of pt's status upon admission and devise an individualized program for Patient precaution education Edema - to improve, our physical therapists will perform initial evaluation of pt's status upon admis verónica and devise an individualized program for Elevation Training, and Lymphedema Therapy Poor balance - to improve, our physical therapists will perform initial evaluation of pt's status up on admission and devise an individualized program for Balance Training Weakness - to improve, our physical therapists will perform initial evaluation of pt's status upon a dmission and devise an individualized program for Aquatic Therapy, Neuromuscular Reeducation, and Str engthening Achieving independence - to improve, our physical therapists will perform initial evaluation of pt's status upon admission and devise an individualized program for Community Reintegration Activities - Occupational Therapy ADL deficits - to improve, our occupation therapists will perform initial evaluation of pt's status upon admission and devise an individualized program for Bathing, Bed mobility, Community Reintegratio n, Cooking, Dressing, Eating, Fine Motor Skills, Grooming, Homemaking, Kitchen Mobility, Laundry, Pat ient Education, Safety Awareness, Splinting - Positioning, Transfers(Toilet, Tub, Shower), and Wheel Chair Management Cognitive deficits - to improve, our occupation therapists will perform initial evaluation of pt's s tatus upon admission and devise an individualized program for Cognition - orientation 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 - to improve, our occupation therapists will perform initial evaluation of pt's status upon admission and devise an individualized program for Caregiver Training Weakness - to improve, our occupation therapists will perform initial evaluation of pt's status upon admission and devise an individualized program for Aquatic Therapy, Balance, Endurance, UE ROM, and UE strengthening - Other See attached MAR (Medication Administration Record) - Diet Type Continue Regular - Diet - Liquid Texture Continue Regular - Tube Feed Continue N/A - Diet - Solid Texture Continue Regular - Shower allowing shower FUNCTIONAL STATUS: UPDATED AT WEEKLY TEAM CONFERENCE - Bladder Same accident frequency: 7-Ind - No accidents in the past 7 days - Bowel Same accident frequency: 7-Ind - No accidents in the past 7 days - Walking Same score based on distance walked: 0(N/A) Same score based on distance walked: 3(>=150ft) - Wheelchair Same score based on distance traveled: 0(N/A) FUNCTIONAL STATUS: - Self-Care A. Eating Moisés B. Grooming Moisés C. Bathing sup D. Dressing - Upper Moisés E. Dressing - Lower sup F. Toileting Moisés - Sphincter Control G. Bladder control Moisés H. Bowel control Moisés - Transfers Control I. Bed/Chair/Wheelchair sup J. Toilet sup K. Tub/Shower Keyanna - Locomotion L. Walk/Wheelchair (B) Keyanna M. Stairs modA - Communication N. Comprehension (B) Moisés O. Expression (B) Moisés - Social Cognition P. Social Interaction Moisés Q. Problem Solving Moisés R. Memory Moisés - Endurance Good - Balance Good - Safety Awareness Good QI SCORES: - Self-Care A. Eating 04-Supervision or touching assistance B. Oral hygiene 03-Partial/moderate assistance C. Toileting hygiene E. Shower/bathe self 02-Substantial/maximal assistance F. Upper body dressing 03-Partial/moderate assistance G. Lower body dressing 02-Substantial/maximal assistance H. Putting on/taking off footwear 88-Not attempted due to medical condition or safety concerns - Mobility A. Roll left and right 03-Partial/moderate assistance B. Sit to lying 03-Partial/moderate assistance C. Lying to sitting on side of bed 03-Partial/moderate assistance D. Sit to stand 03-Partial/moderate assistance E. Chair/[id number] transfer 03-Partial/moderate assistance F. Toilet transfer G. Car transfer 88-Not attempted due to medical condition or safety concerns I. Walk 10 feet 03-Partial/moderate assistance J. Walk 50 feet with two turns 03-Partial/moderate assistance K. Walk 150 feet 03-Partial/moderate assistance L. Walking 10 feet on uneven surfaces 88-Not attempted due to medical condition or safety concerns M. 1 step (curb) 88-Not attempted due to medical condition or safety concerns N. 4 steps 88-Not attempted due to medical condition or safety concerns O. 12 steps 88-Not attempted due to medical condition or safety concerns P. Picking up object 88-Not attempted due to medical condition or safety concerns R. Wheel 50 feet with two turns 88-Not attempted due to medical condition or safety concerns S. Wheel 150 feet 88-Not attempted due to medical condition or safety concerns - Bladder and Bowel Bladder continence Bowel continence - Endurance Fair - Balance Fair - Safety Awareness Fair [facility] 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
[2020-10-11] MEDS: ENOXAPARIN 40 MG/0.4 ML SQ SCH (20:13)
[2020-10-11] MEDS: ATORVASTATIN 40 MG TAB PO SCH (20:14)
[2020-10-11] MEDS: NITROFURAN MACRO 100 MG CAP PO SCH (20:14)
[2020-10-11] MEDS: TRAMADOL HCL 50 MG TAB PO PRN (23:45)
[2020-10-12] MEDS: METOPROLOL XL 25 MG TAB PO SCH ×2 (05:00→17:06)
[2020-10-12] MEDS: INSULIN -REGULAR HUMAN 50 UNIT/0.5 ML ML SQ SCH ×4 (07:23→19:46)
[2020-10-12] MEDS: TORSEMIDE 20 MG TAB PO SCH ×3 (08:00→16:49)
[2020-10-12] MEDS: POTASSIUM CL SA 10 MEQ TAB PO SCH (09:08)
[2020-10-12] MEDS: ASPIRIN EC 81 MG TAB PO SCH (09:09)
[2020-10-12] MEDS: FAMOTIDINE 20 MG TAB PO SCH ×2 (09:09→19:44)
[2020-10-12] MEDS: SACUBITRIL/VALSARTAN 24/26 MG TAB PO SCH ×2 (09:09→19:44)
[2020-10-12] MEDS: CRANBERRY FRUIT EXTRACT 200 MG CAP PO SCH ×2 (09:11→19:44)
[2020-10-12] MEDS: NITROFURAN MACRO 100 MG CAP PO SCH ×2 (09:11→19:44)
[2020-10-12] MEDS: ATORVASTATIN 40 MG TAB PO SCH (19:44)
[2020-10-12] MEDS: ENOXAPARIN 40 MG/0.4 ML SQ SCH (19:45)
[2020-10-13] MEDS: METOPROLOL XL 25 MG TAB PO SCH ×2 (05:01→16:59)
[2020-10-13] MEDS: INSULIN -REGULAR HUMAN 50 UNIT/0.5 ML ML SQ SCH ×4 (07:11→20:13)
[2020-10-13] MEDS: NITROFURAN MACRO 100 MG CAP PO SCH ×2 (08:18→20:11)
[2020-10-13] MEDS: FAMOTIDINE 20 MG TAB PO SCH ×2 (08:18→20:12)
[2020-10-13] MEDS: POTASSIUM CL SA 10 MEQ TAB PO SCH (08:18)
[2020-10-13] MEDS: ASPIRIN EC 81 MG TAB PO SCH (08:18)
[2020-10-13] MEDS: TORSEMIDE 20 MG TAB PO SCH ×2 (08:19→16:58)
[2020-10-13] MEDS: SACUBITRIL/VALSARTAN 24/26 MG TAB PO SCH ×2 (08:19→20:12)
[2020-10-13] MEDS: CRANBERRY FRUIT EXTRACT 200 MG CAP PO SCH ×2 (08:19→20:11)
[2020-10-13] MEDS: ACETAMINOPHEN 500 MG TAB PO PRN (12:05)
[2020-10-13] MEDS: ATORVASTATIN 40 MG TAB PO SCH (20:11)
[2020-10-13] MEDS: ENOXAPARIN 40 MG/0.4 ML SQ SCH (20:12)
[2020-10-13] MEDS: DOCUSATE NA 100 MG CAP PO PRN (20:13)
[2020-10-14] MEDS: TRAMADOL HCL 50 MG TAB PO PRN ×2 (00:48→21:00)
--- NOTE | 2020-10-14 02:19 | FAST ---
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 Andres Lux M.D. ADMISSION DIAGNOSIS: - Cardiac 09 - Cardiac Disorders () CHF. EATING: Not assessed/no information CODE: - ORAL HYGIENE: Not assessed/no information CODE: - TOILETING HYGIENE: TOILETING HYGIENE - STEP 1: Does the patient complete the activity by him/herself with no assistance (physical, verbal/nonverbal cueing, setup/clean-up)? No. TOILETING HYGIENE - STEP 2: Does the patient need only setup/clean-up assistance from one helper? No. TOILETING HYGIENE - STEP 3: Does the patient need only verbal/nonverbal cueing or touching/steadying/contact guard assistance fro m one helper? Yes. 1. [id number] ADMISSION PERFORMANCE: Supervision or touching assistance CODE: 04 BATHING: Not assessed/no information CODE: - DRESSING - UPPER BODY: Not assessed/no information CODE: - DRESSING - LOWER BODY: Not assessed/no information CODE: - PUTTING ON/TAKING OFF FOOTWEAR: Not assessed/no information CODE: - ROLL LEFT AND RIGHT: ROLL LEFT AND RIGHT - STEP 1: Does the patient complete the activity by him/herself with no assistance (physical, verbal/nonverbal cueing, setup/clean-up)? No. ROLL LEFT AND RIGHT - STEP 2: Does the patient need only setup/clean-up assistance from one helper? No. ROLL LEFT AND RIGHT - STEP 3: Does the patient need only verbal/nonverbal cueing or touching/steadying/contact guard assistance fro m one helper? Yes. 1. [id number] ADMISSION PERFORMANCE: Supervision or touching assistance CODE: 04 SIT TO LYING: SIT TO LYING - STEP 1: Does the patient complete the activity by him/herself with no assistance (physical, verbal/nonverbal cueing, setup/clean-up)? No. SIT TO LYING - STEP 2: Does the patient need only setup/clean-up assistance from one helper? No. SIT TO LYING - STEP 3: Does the patient need only verbal/nonverbal cueing or touching/steadying/contact guard assistance fro m one helper? Yes. 1. [id number] ADMISSION PERFORMANCE: Supervision or touching assistance CODE: 04 LYING TO SITTING: LYING TO SITTING ON SIDE OF BED - STEP 1: Does the patient complete the activity by him/herself with no assistance (physical, verbal/nonverbal cueing, setup/clean-up)? No. LYING TO SITTING ON SIDE OF BED - STEP 2: Does the patient need only setup/clean-up assistance from one helper? No. LYING TO SITTING ON SIDE OF BED - STEP 3: Does the patient need only verbal/nonverbal cueing or touching/steadying/contact guard assistance fro m one helper? Yes. 1. [id number] ADMISSION PERFORMANCE: Supervision or touching assistance CODE: 04 SIT TO STAND: SIT TO STAND - STEP 1: Does the patient complete the activity by him/herself with no assistance (physical, verbal/nonverbal cueing, setup/clean-up)? No. SIT TO STAND - STEP 2: Does the patient need only setup/clean-up assistance from one helper? No. SIT TO STAND - STEP 3: Does the patient need only verbal/nonverbal cueing or touching/steadying/contact guard assistance fro m one helper? Yes. 1. [id number] ADMISSION PERFORMANCE: Supervision or touching assistance CODE: 04 TRANSFERS: BED, CHAIR: Not assessed/no information CODE: - TRANSFER TOILET: TOILET TRANSFER - STEP 1: Does the patient complete the activity by him/herself with no assistance (physical, verbal/nonverbal cueing, setup/clean-up)? No. TOILET TRANSFER - STEP 2: Does the patient need only setup/clean-up assistance from one helper? No. TOILET TRANSFER - STEP 3: Does the patient need only verbal/nonverbal cueing or touching/steadying/contact guard assistance fro m one helper? Yes. 1. [id number] ADMISSION PERFORMANCE: Supervision or touching assistance CODE: 04 TRANSFERS: CAR: Not assessed/no information CODE: - WALK 10 FEET: Not assessed/no information CODE: - 1 STEP (CURB): Not assessed/no information CODE: - PICKING UP OBJECT: Not assessed/no information CODE: - DOES THE PATIENT USE A WHEELCHAIR/SCOOTER? CODE: EXPR WHEEL 50 FEET WITH TWO TURNS: Not assessed/no information CODE: - INDICATE THE TYPE OF WHEELCHAIR/SCOOTER USED: CODE: EXPR WHEEL 150 FEET: Not assessed/no information CODE: - INDICATE THE TYPE OF WHEELCHAIR/SCOOTER USED: CODE: EXPR BLADDER AND BOWEL: H350. BLADDER CONTINENCE (3-DAY ASSESSMENT PERIOD): Always continent (no documented incontinence) CODE: 0 H400. BOWEL CONTINENCE (3-DAY ASSESSMENT PERIOD): Always continent CODE: 0
[2020-10-14] MEDS: METOPROLOL XL 25 MG TAB PO SCH ×2 (05:08→17:15)
[2020-10-14] MEDS: INSULIN -REGULAR HUMAN 50 UNIT/0.5 ML ML SQ SCH ×4 (07:13→21:00)
[2020-10-14] MEDS: ASPIRIN EC 81 MG TAB PO SCH (07:59)
[2020-10-14] MEDS: TORSEMIDE 20 MG TAB PO SCH ×2 (07:59→17:24)
[2020-10-14] MEDS: CRANBERRY FRUIT EXTRACT 200 MG CAP PO SCH ×2 (07:59→20:55)
[2020-10-14] MEDS: FAMOTIDINE 20 MG TAB PO SCH ×2 (08:00→20:56)
[2020-10-14] MEDS: NITROFURAN MACRO 100 MG CAP PO SCH ×2 (08:00→20:55)
[2020-10-14] MEDS: SACUBITRIL/VALSARTAN 24/26 MG TAB PO SCH ×2 (08:00→20:57)
[2020-10-14] MEDS: POTASSIUM CL SA 10 MEQ TAB PO SCH (08:00)
[2020-10-14] MEDS ORDERED: ONDANSETRON 4 MG (ODT) TAB PO PRN (16:29)
--- NOTE | 2020-10-14 17:50 | R.PN ---
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 Pt denied any depression. Glucose 98 to 116 . UA E-coli sensitive to her current treatment macrobid. Ambulated 750' with contact guard assistance. VITAL SIGNS Temperature: 97.9 F SBP/DBP: 136/73 Pulse: 82 Resp: 16 MEDICATION ALLERGIES: No Known Drug Allergies (NKDA) ENVIRONMENTAL ALLERGIES: - Substance Allergies None Known - Other Allergies None Known NURSING: - Shower allowing shower ACTIVITIES OOB only with supervision THERAPIES: - Dietary and Nutrition Adequate Nutrition. Nutritional Education. Nutritional Supplements. PHYSICAL EXAM - Gen Alert and awake Lying in bed No apparent distress Oriented to: person, time, and place - Skin No breakdown Normacephalic - Eyes No abnormalities - ENMT No abnormalities - Neck No abnormalities - CVS RRR - Chest Mildly decreased breath sounds bilaterally. - Resp No wheezing - Abd Soft - GI Soft Deferred - No abnormalities - Ext Mild bilateral lower extremity edema. - MSK 4/5 weakness in both lower extremities. - Neuro No focal deficits - Psych No abnormalities ASSESSMENT: Pt. is a 65 yo Right-handed female of unknown race.On 10/04/2020 she was admitted to [facility] with diagnosis CHF.Her impairment category is Cardiac 09 - Cardiac Disorders (09).Pre-morbidly, Pt. was independent/mod-I in Communication, Safety Awareness, Transfers Control, Self-Care, and Enduranc e; and she had good Balance and Social Cognition.Currently, she has deficits of Balance, Social Cogni tion, Sphincter Control, Communication, and Self-Care.Pt. is now referred to [facility] for acute in-patient rehabilitation in order to maximize patient's functional independence in activities of daily living, strength, ROM, and mobility.- Rehab Goal Patient has realistic goal of being discharged at assistance level 7-Ind to reside at Home with Pt s elf. MDM/PLAN: - Physical Therapy Gait dysfunction - to improve, our physical therapists will perform initial evaluation of pt's statu s upon admission and devise an individualized program for Gait Training, and Wheel Chair mobility Need for home safety evaluation - to improve, our physical therapists will perform initial evaluatio n of pt's status upon admission and devise an individualized program for Home Evaluation Need in caregiver upon discharge - to improve, our physical therapists will perform initial evaluati on of pt's status upon admission and devise an individualized program for Caregiver Training New precaution - to improve, our physical therapists will perform initial evaluation of pt's status upon admission and devise an individualized program for Patient precaution education Edema - to improve, our physical therapists will perform initial evaluation of pt's status upon admi ssion and devise an individualized program for Elevation Training, and Lymphedema Therapy Poor balance - to improve, our physical therapists will perform initial evaluation of pt's status up on admission and devise an individualized program for Balance Training Weakness - to improve, our physical therapists will perform initial evaluation of pt's status upon a dmission and devise an individualized program for Aquatic Therapy, Neuromuscular Reeducation, and Str engthening Achieving independence - to improve, our physical therapists will perform initial evaluation of pt's status upon admission and devise an individualized program for Community Reintegration Activities - Occupational Therapy ADL deficits - to improve, our occupation therapists will perform initial evaluation of pt's status upon admission and devise an individualized program for Bathing, Bed mobility, Community Reintegratio n, Cooking, Dressing, Eating, Fine Motor Skills, Grooming, Homemaking, Kitchen Mobility, Laundry, Pat ient Education, Safety Awareness, Splinting - Positioning, Transfers(Toilet, Tub, Shower), and Wheel Chair Management Cognitive deficits - to improve, our occupation therapists will perform initial evaluation of pt's s tatus upon admission and devise an individualized program for Cognition - orientation Need for care program resident - to improve, our occupation therapists will perform initial evaluation of pt's status upon admission and devise an individualized program for Caregiver Training Weakness - to improve, our occupation therapists will perform initial evaluation of pt's status upon admission and devise an individualized program for Aquatic Therapy, Balance, Endurance, UE ROM, and UE strengthening - Other See attached MAR (Medication Administration Record) - Diet Type Continue Regular - Diet - Liquid Texture Continue Regular - Tube Feed Continue N/A - Diet - Solid Texture Continue Regular - Shower allowing shower FUNCTIONAL STATUS: UPDATED AT WEEKLY TEAM CONFERENCE - Bladder Same accident frequency: 7-Ind - No accidents in the past 7 days - Bowel Same accident frequency: 7-Ind - No accidents in the past 7 days - Walking Same score based on distance walked: 0(N/A) Same score based on distance walked: 3(>=150ft) - Wheelchair Same score based on distance traveled: 0(N/A) FUNCTIONAL STATUS: - Self-Care A. Eating Moisés B. Grooming Moisés C. Bathing sup D. Dressing - Upper Moisés E. Dressing - Lower sup F. Toileting Moisés - Sphincter Control G. Bladder control Moisés H. Bowel control Moisés - Transfers Control I. Bed/Chair/Wheelchair sup J. Toilet sup K. Tub/Shower Keyanna - Locomotion L. Walk/Wheelchair (B) Keyanna M. Stairs modA - Communication N. Comprehension (B) Moisés O. Expression (B) Moisés - Social Cognition P. Social Interaction Moisés Q. Problem Solving Moisés R. Memory Moisés - Endurance Good - Balance Good - Safety Awareness Good QI SCORES: - Self-Care A. Eating 04-Supervision or touching assistance B. Oral hygiene 03-Partial/moderate assistance C. Toileting hygiene E. Shower/bathe self 02-Substantial/maximal assistance F. Upper body dressing 03-Partial/moderate assistance G. Lower body dressing 02-Substantial/maximal assistance H. Putting on/taking off footwear 88-Not attempted due to medical condition or safety concerns - Mobility A. Roll left and right 03-Partial/moderate assistance B. Sit to lying 03-Partial/moderate assistance C. Lying to sitting on side of bed 03-Partial/moderate assistance D. Sit to stand 03-Partial/moderate assistance E. Chair/[id number] transfer 03-Partial/moderate assistance F. Toilet transfer G. Car transfer 88-Not attempted due to medical condition or safety concerns I. Walk 10 feet 03-Partial/moderate assistance J. Walk 50 feet with two turns 03-Partial/moderate assistance K. Walk 150 feet 03-Partial/moderate assistance L. Walking 10 feet on uneven surfaces 88-Not attempted due to medical condition or safety concerns M. 1 step (curb) 88-Not attempted due to medical condition or safety concerns N. 4 steps 88-Not attempted due to medical condition or safety concerns O. 12 steps 88-Not attempted due to medical condition or safety concerns P. Picking up object 88-Not attempted due to medical condition or safety concerns R. Wheel 50 feet with two turns 88-Not attempted due to medical condition or safety concerns S. Wheel 150 feet 88-Not attempted due to medical condition or safety concerns - Bladder and Bowel Bladder continence Bowel continence - Endurance Fair - Balance Fair - Safety Awareness Fair [facility]RENT [facility]. 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
[2020-10-14] MEDS: ATORVASTATIN 40 MG TAB PO SCH (20:57)
[2020-10-14] MEDS: ENOXAPARIN 40 MG/0.4 ML SQ SCH (20:59)
[2020-10-15] MEDS: METOPROLOL XL 25 MG TAB PO SCH ×2 (05:32→17:08)
[2020-10-15] MEDS: INSULIN -REGULAR HUMAN 50 UNIT/0.5 ML ML SQ SCH ×4 (07:30→20:47)
[2020-10-15] MEDS: LIDOCAINE 4% PATCH TOP SCH (08:00)
[2020-10-15] MEDS: SACUBITRIL/VALSARTAN 24/26 MG TAB PO SCH ×2 (08:31→20:46)
[2020-10-15] MEDS: POTASSIUM CL SA 10 MEQ TAB PO SCH (08:31)
[2020-10-15] MEDS: ASPIRIN EC 81 MG TAB PO SCH (08:32)
[2020-10-15] MEDS: CRANBERRY FRUIT EXTRACT 200 MG CAP PO SCH ×2 (08:32→20:46)
[2020-10-15] MEDS: FAMOTIDINE 20 MG TAB PO SCH ×2 (08:32→20:46)
[2020-10-15] MEDS: TORSEMIDE 20 MG TAB PO SCH ×2 (08:33→17:07)
[2020-10-15] MEDS: NITROFURAN MACRO 100 MG CAP PO SCH ×2 (08:33→20:46)
--- NOTE | 2020-10-15 18:04 | R.PN ---
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 Pt denied any depression. Glucose 83 to 129 . UA E-coli sensitive to her current treatment macrobid. Ambulated 750' with standby assistance using a rolling walker. VITAL SIGNS Temperature: 97.0 F SBP/DBP: 122/63 Pulse: 77 Resp: 16 MEDICATION ALLERGIES: No Known Drug Allergies (NKDA) ENVIRONMENTAL ALLERGIES: - Substance Allergies None Known - Other Allergies None Known NURSING: - Shower allowing shower ACTIVITIES OOB only with supervision THERAPIES: - Dietary and Nutrition Adequate Nutrition. Nutritional Education. Nutritional Supplements. PHYSICAL EXAM - Gen Alert and awake Lying in bed No apparent distress Oriented to: person, time, and place - Skin No breakdown Normacephalic - Eyes No abnormalities - ENMT No abnormalities - Neck No abnormalities - CVS RRR - Chest Mildly decreased breath sounds bilaterally. - Resp No wheezing - Abd Soft - GI Soft Deferred - No abnormalities - Ext Mild bilateral lower extremity edema. - MSK 4/5 weakness in both lower extremities. - Neuro No focal deficits - Psych No abnormalities ASSESSMENT: Pt. is a 65 yo Right-handed female of unknown race.On 10/04/2020 she was admitted to [facility] with diagnosis CHF.Her impairment category is Cardiac 09 - Cardiac Disorders (09).Pre-morbidly, Pt. was independent/mod-I in Communication, Safety Awareness, Transfers Control, Self-Care, and Enduranc e; and she had good Balance and Social Cognition.Currently, she has deficits of Balance, Social Cogni tion, Sphincter Control, Communication, and Self-Care.Pt. is now referred to [facility] for acute in-patient rehabilitation in order to maximize patient's functional independence in activities of daily living, strength, ROM, and mobility.- Rehab Goal Patient has realistic goal of being discharged at assistance level 7-Ind to reside at Home with Pt s elf. MDM/PLAN: - Physical Therapy Gait dysfunction - to improve, our physical therapists will perform initial evaluation of pt's statu s upon admission and devise an individualized program for Gait Training, and Wheel Chair mobility Need for home safety evaluation - to improve, our physical therapists will perform initial evaluatio n of pt's status upon admission and devise an individualized program for Home Evaluation Need in caregiver upon discharge - to improve, our physical therapists will perform initial evaluati on of pt's status upon admission and devise an individualized program for Caregiver Training New precaution - to improve, our physical therapists will perform initial evaluation of pt's status upon admission and devise an individualized program for Patient precaution education Edema - to improve, our physical therapists will perform initial evaluation of pt's status upon admi ssion and devise an individualized program for Elevation Training, and Lymphedema Therapy Poor balance - to improve, our physical therapists will perform initial evaluation of pt's status up on admission and devise an individualized program for Balance Training Weakness - to improve, our physical therapists will perform initial evaluation of pt's status upon a dmission and devise an individualized program for Aquatic Therapy, Neuromuscular Reeducation, and Str engthening Achieving independence - to improve, our physical therapists will perform initial evaluation of pt's status upon admission and devise an individualized program for Community Reintegration Activities - Occupational Therapy ADL deficits - to improve, our occupation therapists will perform initial evaluation of pt's status upon admission and devise an individualized program for Bathing, Bed mobility, Community Reintegratio n, Cooking, Dressing, Eating, Fine Motor Skills, Grooming, Homemaking, Kitchen Mobility, Laundry, Pat ient Education, Safety Awareness, Splinting - Positioning, Transfers(Toilet, Tub, Shower), and Wheel Chair Management Cognitive deficits - to improve, our occupation therapists will perform initial evaluation of pt's s tatus upon admission and devise an individualized program for Cognition - orientation Need for adult caregiver - to improve, our occupation therapists will perform initial evaluation of pt's status upon admission and devise an individualized program for Caregiver Training Weakness - to improve, our occupation therapists will perform initial evaluation of pt's status upon admission and devise an individualized program for Aquatic Therapy, Balance, Endurance, UE ROM, and UE strengthening - Other See attached MAR (Medication Administration Record) - Diet Type Continue Regular - Diet - Liquid Texture Continue Regular - Tube Feed Continue N/A - Diet - Solid Texture Continue Regular - Shower allowing shower FUNCTIONAL STATUS: UPDATED AT WEEKLY TEAM CONFERENCE - Bladder Same accident frequency: 7-Ind - No accidents in the past 7 days - Bowel Same accident frequency: 7-Ind - No accidents in the past 7 days - Walking Same score based on distance walked: 0(N/A) Same score based on distance walked: 3(>=150ft) - Wheelchair Same score based on distance traveled: 0(N/A) FUNCTIONAL STATUS: - Self-Care A. Eating Moisés B. Grooming Moisés C. Bathing sup D. Dressing - Upper Moisés E. Dressing - Lower sup F. Toileting Moisés - Sphincter Control G. Bladder control Moisés H. Bowel control Moisés - Transfers Control I. Bed/Chair/Wheelchair sup J. Toilet sup K. Tub/Shower Keyanna - Locomotion L. Walk/Wheelchair (B) Keyanna M. Stairs modA - Communication N. Comprehension (B) Moisés O. Expression (B) Moisés - Social Cognition P. Social Interaction Moisés Q. Problem Solving Moisés R. Memory Moisés - Endurance Good - Balance Good - Safety Awareness Good QI SCORES: - Self-Care A. Eating 04-Supervision or touching assistance B. Oral hygiene 03-Partial/moderate assistance C. Toileting hygiene E. Shower/bathe self 02-Substantial/maximal assistance F. Upper body dressing 03-Partial/moderate assistance G. Lower body dressing 02-Substantial/maximal assistance H. Putting on/taking off footwear 88-Not attempted due to medical condition or safety concerns - Mobility A. Roll left and right 03-Partial/moderate assistance B. Sit to lying 03-Partial/moderate assistance C. Lying to sitting on side of bed 03-Partial/moderate assistance D. Sit to stand 03-Partial/moderate assistance E. Chair/[id number] transfer 03-Partial/moderate assistance F. Toilet transfer G. Car transfer 88-Not attempted due to medical condition or safety concerns I. Walk 10 feet 03-Partial/moderate assistance J. Walk 50 feet with two turns 03-Partial/moderate assistance K. Walk 150 feet 03-Partial/moderate assistance L. Walking 10 feet on uneven surfaces 88-Not attempted due to medical condition or safety concerns M. 1 step (curb) 88-Not attempted due to medical condition or safety concerns N. 4 steps 88-Not attempted due to medical condition or safety concerns O. 12 steps 88-Not attempted due to medical condition or safety concerns P. Picking up object 88-Not attempted due to medical condition or safety concerns R. Wheel 50 feet with two turns 88-Not attempted due to medical condition or safety concerns S. Wheel 150 feet 88-Not attempted due to medical condition or safety concerns - Bladder and Bowel Bladder continence Bowel continence - Endurance Fair - Balance Fair - Safety Awareness Fair CURRENT [facility]. 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
[2020-10-15] MEDS: ATORVASTATIN 40 MG TAB PO SCH (20:46)
[2020-10-15] MEDS: ENOXAPARIN 40 MG/0.4 ML SQ SCH (20:46)
[2020-10-16] MEDS: METOPROLOL XL 25 MG TAB PO SCH ×2 (05:06→17:29)
[2020-10-16 06:10] LABS: Absolute Lymphocytes (CBC) 1.6 K/uL (0.7-4.9); Basophils % 3.7 % (0-1.3); Hematocrit 33.2 % (36.0-45.0); Lymphocytes % 28.5 % (15.3-44.8); RBC Red Blood Cell Count 4.04 M/uL (3.86-4.86)
[2020-10-16 06:28] LABS: Albumin 2.9 g/dL (3.4-5.0); Magnesium 2.2 mg/dL (1.8-2.4); Potassium 4.4 mmol/L (3.5-5.1); Prealbumin 15.9 mg/dL (20-40)
[2020-10-16] MEDS: INSULIN -REGULAR HUMAN 50 UNIT/0.5 ML ML SQ SCH ×4 (07:30→20:03)
[2020-10-16] MEDS: LIDOCAINE 4% PATCH TOP SCH (08:00)
[2020-10-16] MEDS: ASPIRIN EC 81 MG TAB PO SCH (08:43)
[2020-10-16] MEDS: NITROFURAN MACRO 100 MG CAP PO SCH (08:43)
[2020-10-16] MEDS: POTASSIUM CL SA 10 MEQ TAB PO SCH (08:46)
[2020-10-16] MEDS: CRANBERRY FRUIT EXTRACT 200 MG CAP PO SCH ×2 (08:46→20:03)
[2020-10-16] MEDS: SACUBITRIL/VALSARTAN 24/26 MG TAB PO SCH ×2 (08:47→20:03)
[2020-10-16] MEDS: FAMOTIDINE 20 MG TAB PO SCH ×2 (08:47→20:03)
[2020-10-16] MEDS: TORSEMIDE 20 MG TAB PO SCH ×2 (08:48→17:28)
[2020-10-16] MEDS: DOCUSATE NA 100 MG CAP PO PRN (08:52)
[2020-10-16 09:01] LABS: Blood Morphology Comment NOT SEEN (NOT SEEN); Platelet Estimate ADEQ; White Blood Cell Scan OK (OK)
--- NOTE | 2020-10-16 17:46 | R.PN ---
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 Pt denied any depression. Glucose 106 to 143. UA E-coli sensitive to her current treatment macrobid. Ambulated 700' with modified independence using a rolling walker. WBC 5.5, Hgb 10.8, glucose 106 to 143, prealbumin 15.9. VITAL SIGNS Temperature: 97.8 F SBP/DBP: 147/76 Pulse: 88 Resp: 16 MEDICATION ALLERGIES: No Known Drug Allergies (NKDA) ENVIRONMENTAL ALLERGIES: - Substance Allergies None Known - Other Allergies None Known NURSING: - Shower allowing shower ACTIVITIES OOB only with supervision THERAPIES: - Dietary and Nutrition Adequate Nutrition. Nutritional Education. Nutritional Supplements. PHYSICAL EXAM - Gen Alert and awake Lying in bed No apparent distress Oriented to: person, time, and place - Skin No breakdown Normacephalic - Eyes No abnormalities - ENMT No abnormalities - Neck No abnormalities - CVS RRR - Chest Mildly decreased breath sounds bilaterally. - Resp No wheezing - Abd Soft - GI Soft Deferred - No abnormalities - Ext Mild bilateral lower extremity edema. - MSK 4/5 weakness in both lower extremities. - Neuro No focal deficits - Psych No abnormalities ASSESSMENT: Pt. is a 65 yo Right-handed female of unknown race.On 10/04/2020 she was admitted to [facility] with diagnosis CHF.Her impairment category is Cardiac 09 - Cardiac Disorders (09).Pre-morbidly, Pt. was independent/mod-I in Communication, Safety Awareness, Transfers Control, Self-Care, and Enduranc e; and she had good Balance and Social Cognition.Currently, she has deficits of Balance, Social Cogni tion, Sphincter Control, Communication, and Self-Care.Pt. is now referred to [facility] for acute in-patient rehabilitation in order to maximize patient's functional independence in activities of daily living, strength, ROM, and mobility.- Rehab Goal Patient has realistic goal of being discharged at assistance level 7-Ind to reside at Home with Pt s elf. MDM/PLAN: - Physical Therapy Gait dysfunction - to improve, our physical therapists will perform initial evaluation of pt's statu s upon admission and devise an individualized program for Gait Training, and Wheel Chair mobility Need for home safety evaluation - to improve, our physical therapists will perform initial evaluatio n of pt's status upon admission and devise an individualized program for Home Evaluation Need in caregiver upon discharge - to improve, our physical therapists will perform initial evaluati on of pt's status upon admission and devise an individualized program for Caregiver Training New precaution - to improve, our physical therapists will perform initial evaluation of pt's status upon admission and devise an individualized program for Patient precaution education Edema - to improve, our physical therapists will perform initial evaluation of pt's status upon admi ssion and devise an individualized program for Elevation Training, and Lymphedema Therapy Poor balance - to improve, our physical therapists will perform initial evaluation of pt's status up on admission and devise an individualized program for Balance Training Weakness - to improve, our physical therapists will perform initial evaluation of pt's status upon a dmission and devise an individualized program for Aquatic Therapy, Neuromuscular Reeducation, and Str engthening Achieving independence - to improve, our physical therapists will perform initial evaluation of pt's status upon admission and devise an individualized program for Community Reintegration Activities - Occupational Therapy ADL deficits - to improve, our occupation therapists will perform initial evaluation of pt's status upon admission and devise an individualized program for Bathing, Bed mobility, Community Reintegratio n, Cooking, Dressing, Eating, Fine Motor Skills, Grooming, Homemaking, Kitchen Mobility, Laundry, Pat ient Education, Safety Awareness, Splinting - Positioning, Transfers(Toilet, Tub, Shower), and Wheel Chair Management Cognitive deficits - to improve, our occupation therapists will perform initial evaluation of pt's s tatus upon admission and devise an individualized program for Cognition - orientation Need for healthcare advisory services manager - to improve, our occupation therapists will perform initial evaluation of pt's status upon admission and devise an individualized program for Caregiver Training Weakness - to improve, our occupation therapists will perform initial evaluation of pt's status upon admission and devise an individualized program for Aquatic Therapy, Balance, Endurance, UE ROM, and UE strengthening - Other See attached MAR (Medication Administration Record) - Diet Type Continue Regular - Diet - Liquid Texture Continue Regular - Tube Feed Continue N/A - Diet - Solid Texture Continue Regular - Shower allowing shower FUNCTIONAL STATUS: UPDATED AT WEEKLY TEAM CONFERENCE - Bladder Same accident frequency: 7-Ind - No accidents in the past 7 days - Bowel Same accident frequency: 7-Ind - No accidents in the past 7 days - Walking Same score based on distance walked: 0(N/A) Same score based on distance walked: 3(>=150ft) - Wheelchair Same score based on distance traveled: 0(N/A) FUNCTIONAL STATUS: - Self-Care A. Eating Moisés B. Grooming Moisés C. Bathing sup D. Dressing - Upper Moisés E. Dressing - Lower sup F. Toileting Moisés - Sphincter Control G. Bladder control Moisés H. Bowel control Moisés - Transfers Control I. Bed/Chair/Wheelchair sup J. Toilet sup K. Tub/Shower Keyanna - Locomotion L. Walk/Wheelchair (B) Keyanna M. Stairs modA - Communication N. Comprehension (B) Moisés O. Expression (B) Moisés - Social Cognition P. Social Interaction Moisés Q. Problem Solving Moisés R. Memory Moisés - Endurance Good - Balance Good - Safety Awareness Good QI SCORES: - Self-Care A. Eating 04-Supervision or touching assistance B. Oral hygiene 03-Partial/moderate assistance C. Toileting hygiene E. Shower/bathe self 02-Substantial/maximal assistance F. Upper body dressing 03-Partial/moderate assistance G. Lower body dressing 02-Substantial/maximal assistance H. Putting on/taking off footwear 88-Not attempted due to medical condition or safety concerns - Mobility A. Roll left and right 03-Partial/moderate assistance B. Sit to lying 03-Partial/moderate assistance C. Lying to sitting on side of bed 03-Partial/moderate assistance D. Sit to stand 03-Partial/moderate assistance E. Chair/[id number] transfer 03-Partial/moderate assistance F. Toilet transfer G. Car transfer 88-Not attempted due to medical condition or safety concerns I. Walk 10 feet 03-Partial/moderate assistance J. Walk 50 feet with two turns 03-Partial/moderate assistance K. Walk 150 feet 03-Partial/moderate assistance L. Walking 10 feet on uneven surfaces 88-Not attempted due to medical condition or safety concerns M. 1 step (curb) 88-Not attempted due to medical condition or safety concerns N. 4 steps 88-Not attempted due to medical condition or safety concerns O. 12 steps 88-Not attempted due to medical condition or safety concerns P. Picking up object 88-Not attempted due to medical condition or safety concerns R. Wheel 50 feet with two turns 88-Not attempted due to medical condition or safety concerns S. Wheel 150 feet 88-Not attempted due to medical condition or safety concerns - Bladder and Bowel Bladder continence Bowel continence - Endurance Fair - Balance Fair - Safety Awareness Fair CURRENT [facility]. 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
[2020-10-16] MEDS: ATORVASTATIN 40 MG TAB PO SCH (20:03)
[2020-10-16] MEDS: ENOXAPARIN 40 MG/0.4 ML SQ SCH (20:03)
[2020-10-16] MEDS: TRAMADOL HCL 50 MG TAB PO PRN (22:03)
[2020-10-17] MEDS: METOPROLOL XL 25 MG TAB PO SCH (05:25)
[2020-10-17 07:21] VITALS: BP 141/73; TEMP 98.3
[2020-10-17] MEDS: INSULIN -REGULAR HUMAN 50 UNIT/0.5 ML ML SQ SCH ×2 (07:30→11:30)
[2020-10-17] MEDS: LIDOCAINE 4% PATCH TOP SCH (08:00)
[2020-10-17] MEDS: ASPIRIN EC 81 MG TAB PO SCH (08:01)
[2020-10-17] MEDS: CRANBERRY FRUIT EXTRACT 200 MG CAP PO SCH (08:01)
[2020-10-17] MEDS: SACUBITRIL/VALSARTAN 24/26 MG TAB PO SCH (08:01)
[2020-10-17] MEDS: FAMOTIDINE 20 MG TAB PO SCH (08:02)
[2020-10-17] MEDS: TORSEMIDE 20 MG TAB PO SCH (08:02)
[2020-10-17] MEDS: POTASSIUM CL SA 10 MEQ TAB PO SCH (08:03)
--- NOTE | 2020-10-17 09:56 | P.RH.PN ---
Estimated Length of Stay: 11 Expected Discharge Date: 10/17/20 Discharge Disposition Plan: Home Family Support: Yes Senior Care Goal: Mobility, Transfers, Self Care Vital Signs: Last Vital Signs Temp 98.3 F 10/17/20 07:20 Pulse 79 10/17/20 08:02 Resp 18 10/17/20 07:20 BP 141/73 H 10/17/20 08:02 Pulse Ox 96 10/17/20 07:20 Laboratory: Laboratory Last Values WBC 5.5 K/uL (4.3-10.9) 10/16/20 05:47 RBC 4.04 M/uL (3.86-4.86) 10/16/20 05:47 Hgb 10.8 g/dL (12.0-15.0) L 10/16/20 05:47 Hct 33.2 % (36.0-45.0) L 10/16/20 05:47 MCV 82.1 fL (80-100) 10/16/20 05:47 MCH 26.8 pg (27.0-35.0) L 10/16/20 05:47 MCHC 32.7 g/dL (32.0-36.0) 10/16/20 05:47 RDW 15.4 % (12.1-15.2) H 10/16/20 05:47 Plt Count 287 K/uL (152-406) D 10/16/20 05:47 MPV 8.0 fL (7.6-11.3) 10/16/20 05:47 Neutrophils % 43.2 % (41.7-73.7) 10/16/20 05:47 Lymphocytes % 28.5 % (15.3-44.8) 10/16/20 05:47 Monocytes % 14.0 % (3.3-12.3) H 10/16/20 05:47 Eosinophils % 10.6 % (0-4.4) H 10/16/20 05:47 Basophils % 3.7 % (0-1.3) H 10/16/20 05:47 Absolute Neutrophils 2.4 K/uL (1.8-8.0) 10/16/20 05:47 Absolute Lymphocytes 1.6 K/uL (0.7-4.9) 10/16/20 05:47 Absolute Monocytes 0.8 K/uL (0.1-1.3) 10/16/20 05:47 Absolute Eosinophils 0.6 K/uL (0-0.5) H 10/16/20 05:47 Absolute Basophils 0.2 K/uL (0-0.5) 10/16/20 05:47 Platelet Estimate Adeq 10/16/20 05:47 Morphology Comment Not seen (NOT SEEN) 10/16/20 05:47 Sodium 137 mmol/L (136-145) 10/16/20 05:47 Potassium 4.4 mmol/L (3.5-5.1) 10/16/20 05:47 Chloride 99 mmol/L (98-107) 10/16/20 05:47 Carbon Dioxide 30 mmol/L (21-32) 10/16/20 05:47 BUN 20 mg/dL (7-18) H 10/16/20 05:47 Creatinine 1.10 mg/dL (0.55-1.3) 10/16/20 05:47 Estimated GFR 50 mL/min (=/>90) L 10/16/20 05:47 Glucose 105 mg/dL (74-106) 10/16/20 05:47 POC Glucose 100 mg/dL (65-120) 10/17/20 07:33 Calcium 9.0 mg/dL (8.5-10.1) 10/16/20 05:47 Magnesium 2.2 mg/dL (1.8-2.4) 10/16/20 05:47 Albumin 2.9 g/dL (3.4-5.0) L 10/16/20 05:47 Prealbumin 15.9 mg/dL (20-40) L 10/16/20 05:47 Urine Color Yellow 10/09/20 05:45 Urine Appearance Clear 10/09/20 05:45 Urine pH 6.0 (5.0-7.0) 10/09/20 05:45 Ur Specific Valliant 1.015 (1.005-1.030) 10/09/20 05:45 Glucose (UA)(Auto) Negative (NEG) 10/09/20 05:45 Urine Ketones Negative (NEG) 10/09/20 05:45 Urine Blood Negative (NEG) 10/09/20 05:45 Urine Nitrite Positive (NEG) H 10/09/20 05:45 Urine Bilirubin Negative (NEG) 10/09/20 05:45 Urine Urobilinogen 1.0 mg/dL (0.2-1.0) 10/09/20 05:45 Ur Leukocyte Esterase Negative (NEG) 10/09/20 05:45 Urine RBC <5 /HPF (NONE SEEN) 10/09/20 05:45 Urine WBC <5 /HPF (<5) 10/09/20 05:45 Ur Squamous Epith Cells <5 /HPF (NONE SEEN) 10/09/20 05:45 Ur Urothelial Cells <5 /HPF (NONE SEEN) 10/09/20 05:45 Urine Bacteria >50 /HPF (<20) H 10/09/20 05:45 Urine Culture Reflexed Not needed 10/09/20 05:45 Urine Total Protein 1+ (NEG) H 10/09/20 05:45 SARS-CoV-2 RNA (RT-PCR) Negative (NEGATIVE) 10/08/20 17:20 Smear Scan Ok (OK) 10/16/20 05:47 Weight: 138 lb Wound Present: No Closed Surgical Incision Present: Yes Negative Pressure Wound Therapy Present: No Physician Update: Labs reviewed and are stable. She made good overall progress with her PT and OT. She will have sternal precautions after discharged until released by her surgeon. She will be discharged home today. Functional Improvement: Patient is currently CG/SBA w/ transfers, Independently w/ bed mobility and gait tx. w/ RW, and SBA w/ stairs tx. Patient requires strong VC for encouragement and motivation. Summary: Patient's care plan and residential goals have been reviewed and revised as necessary. Please see the Rehabilitation Signature page for all necessary signatures.
--- NOTE | 2020-11-14 16:37 | R.DS ---
DISCHARGE SUMMARY FACILITY [facility] MR# [id number] NAME LEEONORA PEDRO ADDRESS [address] [place]IP [address] PHONE ( DATE OF 1955 AGE 65 SSN# [id number] GENDER Female DEXTERITY Right-handed MAR[place] STATUS RACE Unknown race ENCOUNTER PHYSICIAN Dr. Andres Lux M.D. REFERRING DOCTOR GILBERTO BOB MD REFERRING FACILITY [facility] DISCHARGE DIAGNOSIS: - Cardiac 09 - Cardiac Disorders () CHF. DATE OF ADMISSION 10/08/2020 16:36 ([employer]AL) MEDICATION ALLERGIES: No Known Drug Allergies (NKDA) ENVIRONMENTAL ALLERGIES: - Substance Allergies None Known - Other Allergies None Known DISCHARGE MEDICATIONS: Other- ContinueSee attached MAR (Medication Administration Record). NURSING: - Shower allowing shower ACTIVITIES OOB only with supervision THERAPIES: - Dietary and Nutrition Adequate Nutrition Nutritional Education Nutritional Supplements HISTORY OF PRESENT ILLNESS: Pt. is a 65 yo Right-handed female of unknown race.On 10/04/2020 she was admitted to [facility] with diagnosis CHF.Her impairment category is Cardiac 09 - Cardiac Disorders ().Pre-morbidly, Pt. was independent/mod-I in Communication, Safety Awareness, Transfers Control, Self-Care, and Enduranc e; and she had good Balance and Social Cognition.Currently, she has deficits of Balance, Social Cogni tion, Sphincter Control, Communication, and Self-Care.Pt. is now referred to [facility] for acute in-patient rehabilitation in order to maximize patient's functional independence in activities of daily living, strength, ROM, and mobility.- Rehab Goal Patient has realistic goal of being discharged at assistance level 7-Ind to reside at Home with Pt s elf. DIET - LIQUID TEXTURE: On 10/08/2020 Pt was upgraded to Regular Diet - Liquid Texture. DIET - SOLID TEXTURE: On 10/08/2020 Pt was upgraded to Regular Diet - Solid Texture. DIET TYPE: On 10/08/2020 Pt was upgraded to Regular Diet Type. TUBE FEED: On 10/08/2020 Pt was changed to N/A Tube Feed. DISCHARGE PHYSICAL EXAM - Gen Alert and awake Lying in bed No apparent distress Oriented to: person, time, and place - Skin No breakdown Normacephalic - Eyes No abnormalities - ENMT No abnormalities - Neck No abnormalities - CVS RRR - Chest Mildly decreased breath sounds bilaterally. - Resp No wheezing - Abd Soft - GI Soft Deferred - No abnormalities - Ext Mild bilateral lower extremity edema. - MSK 4/5 weakness in both lower extremities. - Neuro No focal deficits - Psych No abnormalities FUNCTIONAL STATUS: - Self-Care A. Eating 6-Moisés B. Grooming 6-Moisés C. Bathing 6-Moisés D. Dressing - Upper 6-Moisés E. Dressing - Lower 6-Moisés F. Toileting 6-Moisés - Sphincter Control G. Bladder control 6-Moisés H. Bowel control 6-Moisés - Transfers Control I. Bed/Chair/Wheelchair 6-Moisés J. Toilet 6-Moisés K. Tub/Shower 6-Moisés - Locomotion L. Walk/Wheelchair (B) 6-Moisés M. Stairs 6-Moisés - Communication N. Comprehension (B) 6-Moisés O. Expression (B) 6-Moisés - Social Cognition P. Social Interaction 6-Moisés Q. Problem Solving 6-Moisés R. Memory 6-Moisés - Endurance Good - Balance Good - Safety Awareness Good QI SCORES: - Self-Care A. Eating 04-Supervision or touching assistance B. Oral hygiene 03-Partial/moderate assistance C. Toileting hygiene E. Shower/bathe self 02-Substantial/maximal assistance F. Upper body dressing 03-Partial/moderate assistance G. Lower body dressing 02-Substantial/maximal assistance H. Putting on/taking off footwear 88-Not attempted due to medical condition or safety concerns - Mobility A. Roll left and right 03-Partial/moderate assistance B. Sit to lying 03-Partial/moderate assistance C. Lying to sitting on side of bed 03-Partial/moderate assistance D. Sit to stand 03-Partial/moderate assistance E. Chair/vvl-if-[id number] transfer 03-Partial/moderate assistance F. Toilet transfer G. Car transfer 88-Not attempted due to medical condition or safety concerns I. Walk 10 feet 03-Partial/moderate assistance J. Walk 50 feet with two turns 03-Partial/moderate assistance K. Walk 150 feet 03-Partial/moderate assistance L. Walking 10 feet on uneven surfaces 88-Not attempted due to medical condition or safety concerns M. 1 step (curb) 88-Not attempted due to medical condition or safety concerns N. 4 steps 88-Not attempted due to medical condition or safety concerns O. 12 steps 88-Not attempted due to medical condition or safety concerns P. Picking up object 88-Not attempted due to medical condition or safety concerns R. Wheel 50 feet with two turns 88-Not attempted due to medical condition or safety concerns S. Wheel 150 feet 88-Not attempted due to medical condition or safety concerns - Bladder and Bowel Bladder continence Bowel continence - Endurance Fair - Balance Fair - Safety Awareness Fair DISCHARGE INSTRUCTIONS: - N/A Lovenox 40 mg daily. DISCHARGE PLAN, FOLLOW UP CARE PROVISIONS: - Estimated Length of Stay (days) 10. - Consensus on plan Discharge plan has been discussed with primary caregiver. Patient/Family is in agreement with the janice n. Primary caregiver is in agreement with the plan. - Patient/Family Goals Return home independently. - Planned Living Setting Upon Discharge Home, to live alone. Transitional Living. Primary caregiver: Pt self. SIGNATURE PANEL: ([employer] PRINCIPAL)
== END 2020-10-17 12:40 | disposition home health service (06) | DRG 293 ==
LOC: 5TH 16:36
PROVIDERS: ADMIT Psychiatry & Neurology Neurology with Special Qualifications in Child Neurology; ATTEND Psychiatry & Neurology Neurology with Special Qualifications in Child Neurology
DX: I50.9 Heart failure, unspecified (principal); R53.81 Other malaise; Z98.51 Tubal ligation status; Z20.828 Contact with and (suspected) exposure to other viral communicable diseases
CPT/HCPCS: 36415; 80048; 81001; 82040; 82947; 83735; 84132; 84134; 85025; 87077; 87086; 87088; 87186; 97110; 97116; 97161; 97530; 97537; 97542; J1650; U0003